=== PATIENT | male | born 1980 | race Caucasian/White ===

== ENCOUNTER 2021-02-07 10:48 | Emergency (ER) | payer OTHER ==
[~2021-02-07 10:48] MED LIST: KEFLEX CAP 500500 MG PO; PREDNISONE 50 M50 MG PO; TESSALON PERLE100 MG PO; VENTOLIN HFA 66.7 GM INH; ZOFRAN4 MG PO
== END 2021-02-07 11:23 | disposition home or self-care (01) ==
LOC: ER1 10:48
DX: T16.2XXA Foreign body in left ear, initial encounter (principal); F17.210 Nicotine dependence, cigarettes, uncomplicated; X58.XXXA Exposure to other specified factors, initial encounter
CPT/HCPCS: 69200; 99282

== ENCOUNTER 2021-03-09 13:44 | Emergency (ER) | payer OTHER | END 2021-03-09 15:09 | disposition left against medical advice (07) | LOC: ER1 13:44 | DX: Z53.21 Procedure and treatment not carried out due to patient leaving prior to being seen by health care provider (principal) | CPT/HCPCS: 93005 ==